=== PATIENT | female | born 1995 | race African-American/Black ===

== ENCOUNTER 2018-08-26 14:24 | Emergency (ER) | payer OTHER ==
[~2018-08-26] VITALS: Ht 157.5 cm; Wt 73.0 kg
[2018-08-26 14:50] LABS: URINE BILIRUBIN NEGATIVE (Negative); URINE BLOOD NEGATIVE (Negative); URINE CLARITY CLEAR; URINE COLOR YELLOW; URINE GLUCOSE-RANDOM* NEGATIVE (Negative); URINE KETONES NEGATIVE (Negative); URINE LEUKOCYTES-REFLEX NEGATIVE (Negative); URINE NITRITE-REFLEX NEGATIVE (Negative); URINE PROTEIN (DIPSTICK) NEGATIVE (Negative); URINE SPECIFIC GRAVITY >= 1.030 (1.005-1.035); URINE UROBILINOGEN 0.2 E.U./dl (0.2-1.0)
[2018-08-26] MEDS ORDERED: FLAGYL500 MG PO (15:39)
== END 2018-08-26 15:46 | disposition home or self-care (01) ==
LOC: ER 14:24
PROVIDERS: Nurse Practitioner Family
DX: A59.01 Trichomonal vulvovaginitis (principal); B96.89 Other specified bacterial agents as the cause of diseases classified elsewhere

== ENCOUNTER 2019-08-10 00:07 | Emergency (ER) | payer OTHER ==
[~2019-08-10] VITALS: Ht 157.5 cm; Wt 72.6 kg
[~2019-08-10 00:07] MED LIST: FLAGYL500 MG PO
[2019-08-10 02:12] VITALS: BP 119/80
== END 2019-08-10 01:41 | disposition home or self-care (01) ==
LOC: ER 00:07
DX: N72 Inflammatory disease of cervix uteri (principal); N76.0 Acute vaginitis